=== PATIENT | female | born 1950 | race Caucasian/White ===

== ENCOUNTER 2017-05-18 13:35 | Emergency (ER) | payer MEDICARE ==
[2017-05-18 13:53] VITALS: BP 178/78
[2017-05-18] MEDS ORDERED: GLUCAGON 1 MG/ML VIAL IVP STA ×2 (13:53→15:38)
--- NOTE | 2017-05-18 13:55 | ED Physician Documentation ---
PD HPI HEENT - Stated complaint Stated Complaint: THROAT DISCOMFORT - Chief complaint Chief Complaint: Heent - History obtained from History obtained from: Patient - History of Present Illness Timing - onset: Other (59-year-old woman with history of recurrent esophageal foreign bodies. The last time she had an endoscopically addressed was about 5 years ago in [place]. She frequently gets milder ones that she is able to address at home but feels like she has had a piece of shrimp stuck at the hyoid notch since late afternoon yesterday. She is unable to really manage her secretions although she says she has gotten down sips of water but nothing more. ) Review of Systems Constitutional: reports: Reviewed and negative Nose: denies: Rhinorrhea / runny nose, Congestion Throat: reports: Sore throat Cardiac: denies: Chest pain / pressure, Palpitations Respiratory: denies: Dyspnea, Cough : reports: Dysuria, Frequency PD PAST MEDICAL HISTORY - Past Medical History Past Medical History: Yes Cardiovascular: Hypertension - Present Medications Home Medications: Ambulatory Orders Medication Instructions Recorded Confirmed Nitrofurantoin Monohyd/M-Cryst 1 tab PO BID 5 Days capsule 05/18/17 [Macrobid 100 mg Capsule] cloNIDine [Catapres] 0.1 mg PO TID 05/18/17 05/18/17 - Allergies Allergies/Adverse Reactions: Allergies Allergy/AdvReac Type Severity Reaction Status Date / Time No Known Drug Allergies Allergy Verified 05/18/17 13:53 - Social History Does the pt smoke?: No - Family History Family history: reports: Non contributory PD ED PE NORMAL - Vitals Vital signs reviewed: Yes - General General: Alert and oriented X 3, No acute distress - HEENT HEENT: Other (There is some ulcerations in the soft palate that she says are from "fighting with this." She is spitting her secretions into a bag.) - Neck Neck: Supple, no meningeal sign, No bony TTP - Neuro Neuro: Alert and oriented X 3, Normal speech - Psych Psych: Normal mood, Normal affect Results - Vitals Vitals: Vital Signs - 24 hr 05/18/17 13:46 Temperature 36.1 C L Heart Rate 67 Respiratory 18 Rate Blood Pressure 178/78 H O2 Saturation 100 Oxygen O2 Source Room air - Labs Labs: Laboratory Tests 05/18/17 15:14 Urine Color YELLOW Urine Clarity CLOUDY Urine pH 6.0 Ur Specific Keller >=1.030 H Urine Protein 30 H Urine Glucose (UA) NEGATIVE Urine Ketones 15 H Urine Occult Blood SMALL H Urine Nitrite NEGATIVE Urine Bilirubin NEGATIVE Urine Urobilinogen 0.2 (NORMAL) Ur Leukocyte Esterase SMALL H Urine RBC 0-5 Urine WBC >25 H Ur Squamous Epith Cells RARE Squamous Amorphous Sediment Moderate Urine Bacteria Few Urine Mucus Moderate Strands Ur Microscopic Review INDICATED Urine Culture Comments INDICATED PD MEDICAL DECISION MAKING - ED course ED course: 67-year-old woman with recurrent esophageal foreign bodies presents with a food impaction and unable to swallow her secretions. Glucagon and followed by a GI cocktail was of no help. I spoke with the on-call surgeon here, Dr. Gramajo, the equipment is not available here to do this procedure and she will have to be transferred. [facility] was called at 3:15 PM for potential transfer. I spoke with the GI doctor there, at that point she was feeling like maybe something was moving so the GI doctor recommended glucagon again followed quickly by [employer] which was done but there was no further change. So he was called back at 4:05 PM. She did have signs and symptoms of a UTI, this was treated here with Rocephin and she was given a prescription for Macrobid to fill tomorrow. She subsequently then passed the foreign body and was able to tolerate fluids and the transfer was canceled. Departure - Departure Disposition: 01 Home, Self Care Clinical Impression: Cystitis Esophageal foreign body Qualifiers: Encounter type: initial encounter Qualified Code(s): T18.108A - Unspecified foreign body in esophagus causing other injury, initial encounter Condition: Stable Record reviewed to determine appropriate education?: Yes Instructions: ED UTI Cystitis Female, ED Foreign Body Esophageal Rslv Prescriptions: Nitrofurantoin Monohyd/M-Cryst [Macrobid 100 mg Capsule] 1 tab PO BID 5 Days capsule Comments: Follow-up with your primary care physician for referral to gastroenterology for subsequent upper endoscopy to see why you are having frequent food impactions. We will culture your urine, the results should be done in 48-72 hours. If an antibiotic change is necessary we will call you. Return if worse in the meantime, especially if you develop increasing flank pain, fevers, or cannot keep down the medication. Your blood pressure was elevated today on check into the emergency department. This does not mean that you have hypertension, it is a common phenomenon to come to the emergency department and have elevated blood pressure. I recommend that you see your primary care physician within the week to have it rechecked when you are feeling better.
[2017-05-18] MEDS ORDERED: WATER FOR INJECTION,STERILE 10 ML ONE ×2 (14:11→15:46)
[2017-05-18] MEDS ORDERED: MAG HYDROX/AL HYDROX/SIMETH 30 ML UDC PO STA (14:32)
[2017-05-18] MEDS ORDERED: LIDOCAINE VISCOUS 2% 15 ML UDC MM STA (14:32)
[2017-05-18 15:20] LABS: BILIRUBIN,URINE NEGATIVE (NEGATIVE); GLUCOSE, URINE (UA) NEGATIVE (NEGATIVE); KETONES,URINE (UA) 15 mg/dL (NEGATIVE); LEUKOCYTE ESTERASE, URINE SMALL (NEGATIVE); NITRITE,URINE NEGATIVE (NEGATIVE); OCCULT BLOOD,URINE SMALL (NEGATIVE); PROTEIN,URINE 30 mg/dL (NEGATIVE); UROBILINOGEN,URINE 0.2 (NORMAL) E.U./dL (NORMAL)
[2017-05-18 15:24] LABS: CLARITY,URINE CLOUDY (CLEAR)
[2017-05-18 15:46] LABS: BACTERIA,URINE Few /HPF (None Seen); RBC,URINE 0-5 /HPF (0-5); SQUAMOUS EPITHELIAL CELL,UR RARE Squamous (<= Few)
[2017-05-18 15:47] LABS: AMORPHOUS SEDIMENT,UR Moderate /LPF; MUCUS,URINE Moderate Strands
[2017-05-18] MEDS ORDERED: cefTRIAXone 1 GM in SODIUM CHLORIDE 0.9% MINIBAG 100 ML IV STA (16:04)
== END 2017-05-18 16:56 | disposition home or self-care (01) ==
LOC: ED 13:35
DX: T18.128A Food in esophagus causing other injury, initial encounter (principal); X58.XXXA Exposure to other specified factors, initial encounter; N30.00 Acute cystitis without hematuria; I10 Essential (primary) hypertension
CPT/HCPCS: 81001; 87086; 96374; 96376; 99283; 99284; A9270; 81003

== ENCOUNTER 2020-03-01 09:50 | Outpatient (CLI) | payer MEDICARE | END 2020-03-01 09:51 | disposition home or self-care (01) | LOC: LAB 09:50 | PROVIDERS: ATTEND Internal Medicine | DX: Z20.828 Contact with and (suspected) exposure to other viral communicable diseases (principal) ==

== ENCOUNTER 2022-05-03 14:43 | Outpatient (CLI) | payer MEDICARE ==
[2022-05-03 14:52] LABS: BASOPHILS % (AUTO) 0.6 %; EOSINOPHILS # (AUTO) 0.2 10^3/uL (0.0-0.7); EOSINOPHILS % (AUTO) 3.6 %; HCT - HEMATOCRIT 39.8 % (37.0-47.0); HGB - HEMOGLOBIN 12.8 g/dL (12.0-16.0); LYMPHOCYTES # (AUTO) 1.3 10^3/uL (1.5-3.5); MEAN CORPUSCULAR HEMOGLOBIN 27.5 pg (27.0-31.0); MEAN CORPUSCULAR HGB CONC 32.2 g/dL (32.0-36.0); MEAN CORPUSCULAR VOLUME 85.4 fL (81.0-99.0); MEAN PLATELET VOLUME 11.2 fL (7.9-10.8); MONOCYTES # (AUTO) 0.5 10^3/uL (0.0-1.0); MONOCYTES % (AUTO) 11.3 %; NEUTROPHILS # (AUTO) 2.7 10^3/uL (1.5-6.6); NEUTROPHILS % (AUTO) 57.1 %; PLT - PLATELET COUNT 276 10^3/uL (130-450); RED BLOOD COUNT 4.66 10^6/uL (4.20-5.40); RED CELL DISTRIBUTION WIDTH 14.3 % (12.0-15.0); WHITE BLOOD COUNT 4.7 x10^3/uL (4.8-10.8)
[2022-05-03 15:18] LABS: ALBUMIN 3.8 g/dL (3.2-5.5); ALBUMIN/GLOBULIN RATIO 1.3 (1.0-2.2); ALKALINE PHOSPHATASE 63 IU/L (42-121); ALT ALANINE AMINOTRANSFERASE 12 IU/L (10-60); AST ASPARTATE AMINOTRANSFERASE 23 IU/L (10-42); BILIRUBIN,TOTAL 0.6 mg/dL (0.2-1.0); BUN - BLOOD UREA NITROGEN 17 mg/dL (6-20); CALCIUM 9.1 mg/dL (8.5-10.3); CARBON DIOXIDE - CO2 29 mmol/L (21-32); CHLORIDE 100 mmol/L (101-111); CHOL/HDL RATIO 4.2 (<4.4); CHOLESTEROL 253 mg/dL; CREATININE 0.5 mg/dL (0.4-1.0); GFR - MDRD 121 (>89); GLUCOSE 102 mg/dL (70-100); HDL CHOLESTEROL 60 mg/dL; LDL CHOLESTEROL,CALCULATED 178 mg/dL; POTASSIUM 4.2 mmol/L (3.5-5.0); SODIUM 136 mmol/L (135-145); TOTAL PROTEIN 6.7 g/dL (6.7-8.2); TRIGLYCERIDES 74 mg/dL; VLDL CHOLESTEROL 15 mg/dL
[2022-05-07 20:56] LABS: ESTIMATED AVERAGE GLUCOSE 128 mg/dL (70-100); HEMOGLOBIN A1c% 6.1 % (4.27-6.07)
== END 2022-05-03 14:44 | disposition home or self-care (01) ==
LOC: LAB.R 14:43
PROVIDERS: ATTEND Internal Medicine
DX: Z00.00 Encounter for general adult medical examination without abnormal findings (principal); Z79.899 Other long term (current) drug therapy; E78.5 Hyperlipidemia, unspecified; I10 Essential (primary) hypertension; R63.5 Abnormal weight gain; R73.01 Impaired fasting glucose
CPT/HCPCS: 80053; 80061; 83036; 83721; 84443; 85025